=== PATIENT | female | born 1960 | race Caucasian/White ===

== ENCOUNTER 2019-06-01 06:51 | Emergency (ER) | payer BC, OTHER ==
[~2019-06-01] VITALS: Ht 152.4 cm; Wt 71.2 kg
--- NOTE | 2019-06-01 07:24 | NUR ---
[id number] FROM HOME C/O WEAKNESS AND DIZZINESS X1 DAY. +BODY ACHE, +NAUSEA, ALSO C/O NECK PAIN AND MID BACK PAIN. SEEN AND EXAMINED BY DR LOGAN. PATIENT HOOKED TO MONITOR, VSS. WILL CONTINUE TO MONITOR
[2019-06-01] MEDS ORDERED: IV NS 0.9% 1,000 ML BAG IV ONE (07:30)
[2019-06-01 07:37] LABS: BASOPHILS # (AUTO) 0.1 /CMM (0.0-0.2); BASOPHILS % (AUTO) 0.7 % (0.0-2.0); EOSINOPHILS % (AUTO) 1.6 % (0.0-6.0); HEMATOCRIT 42 % (33-45); HEMOGLOBIN 13.7 g/dL (11.5-14.8); LYMPHOCYTES # (AUTO) 4.3 /CMM (0.8-4.8); LYMPHOCYTES % (AUTO) 34.8 % (20.0-44.0); MEAN CORPUSCULAR HGB CONC 33 g/dl (31.0-36.0); MEAN CORPUSCULAR VOLUME 82 fL (82-100); MONOCYTES # (AUTO) 0.9 /CMM (0.1-1.30); MONOCYTES % (AUTO) 7.4 % (2.0-12.0); NEUTROPHILS # (AUTO) 6.9 /CMM (1.8-8.9); NEUTROPHILS % (AUTO) 55.5 % (43.0-81.0); PLATELET COUNT (AUTO) 306 /CMM (150-450); RED BLOOD CELL COUNT(AUTO) 5.11 MIL/uL (4.0-5.2); WHITE BLOOD COUNT (AUTO) 12.4 K/uL (4.3-11.0)
[2019-06-01 07:40] LABS: CALCIUM, SERUM 9.2 mg/dL (8.5-10.1); CARBON DIOXIDE 28 mmol/L (21-32); CHLORIDE 103 mmol/L (98-107); CREATININE 0.8 mg/dL (0.6-1.3); GLUCOSE 98 mg/dL (74-106); POTASSIUM 4.1 mmol/L (3.5-5.1); SODIUM SERUM 139 mmol/L (136-145); UREA NITROGEN, BLOOD 17 mg/dL (7-18)
--- NOTE | 2019-06-01 08:26 | NUR ---
[employer] AT BEDSIDE
[2019-06-01] MEDS ORDERED: KETOROLAC TROMETHAMINE INJ 30 MG/ML VIAL IV ONE (08:30)
[2019-06-01] MEDS ORDERED: KETOROLAC TROMETHAMINE INJ 30 MG/ML VIAL ONE (08:35)
[2019-06-01 09:02] VITALS: BP 138/74
--- NOTE | 2019-06-01 09:02 | NUR ---
IV removed. Catheter intact and site benign. Pressure and 4x4 applied to site. No bleeding noted.Patient discharged to home in stable condition. Written and verbal after care instructions given. Patient verbalizes understanding of instruction.
== END 2019-06-01 09:03 | disposition home or self-care (01) ==
LOC: ER 06:52
DX: R55 Syncope and collapse (principal); R53.1 Weakness; M79.10 Myalgia, unspecified site; I10 Essential (primary) hypertension; E78.5 Hyperlipidemia, unspecified; Z88.5 Allergy status to narcotic agent
CPT/HCPCS: 36415; 71045; 80048; 84484; 85025; 93005; 96361; 96374; 99284; J1885; J7030

== ENCOUNTER 2023-09-11 18:48 | Emergency (ER) | payer BC, OTHER ==
[~2023-09-11] VITALS: Ht 152.4 cm; Wt 74.8 kg
[2023-09-11] MEDS ORDERED: CYCL5TAB PO (20:53)
[2023-09-11] MEDS ORDERED: KETO10TA2 PO (20:53)
[2023-09-11] MEDS ORDERED: ACETAMINOPHEN ES 500 MG TABLET ONE (21:06)
[2023-09-11] MEDS ORDERED: IBUPROFEN 600 MG TABLET ONE (21:07)
[2023-09-11 21:28] VITALS: BP 175/93; TEMP 98.7; O2SAT 100
[2023-09-11] MEDS ORDERED: IBUPROFEN 600 MG TABLET PO ONE (21:30)
[2023-09-11] MEDS ORDERED: ACETAMINOPHEN ES 500 MG TABLET PO ONE (21:30)
== END 2023-09-11 21:28 | disposition home or self-care (01) ==
LOC: ER 19:00
DX: S13.4XXA Sprain of ligaments of cervical spine, initial encounter (principal); I10 Essential (primary) hypertension; E78.5 Hyperlipidemia, unspecified; Z79.899 Other long term (current) drug therapy; Z88.5 Allergy status to narcotic agent; S06.0X0A Concussion without loss of consciousness, initial encounter; V89.2XXA Person injured in unspecified motor-vehicle accident, traffic, initial encounter; Y93.89 Activity, other specified; Y92.89 Other specified places as the place of occurrence of the external cause; Y99.8 Other external cause status
CPT/HCPCS: 70450-TC; 72125-TC